=== PATIENT | female | born 1980 | race Hispanic/Latino ===

== ENCOUNTER 2024-11-24 07:12 | Day surgery (SDC) | payer OTHER ==
[2024-11-21 16:12] LABS: Anion Gap 7.6 mEq/L (5.0-15.0); BUN Blood Urea Nitrogen 9.0 mg/dL (7-18); Glucose Level 173.0 mg/dL (74-106)
[2024-11-21 16:16] LABS: Potassium 3.6 mEq/L (3.5-5.1)
[2024-11-24] MEDS ORDERED: MIDAZOLAM HCL 2 MG/2 ML INJ ONE (08:47)
[2024-11-24] MEDS ORDERED: LIDOCAINE 1% MPF 5 ML VIAL ONE (08:47)
[2024-11-24] MEDS: NA CHLORIDE 0.9% 1,000 ML ONE (08:50)
[2024-11-24 13:16] VITALS: BP 103/65; TEMP 97.4; O2SAT 100
== END 2024-11-24 09:57 | disposition home or self-care (01) ==
LOC: OR 07:12
PROVIDERS: ATTEND Surgery
PROC: 0DBP8ZX Excision of Rectum, Via Natural or Artificial Opening Endoscopic, Diagnostic (ICD-10-PCS; principal; 2024-11-24 08:45)
DX: E61.1 Iron deficiency (principal); K64.8 Other hemorrhoids; K57.30 Diverticulosis of large intestine without perforation or abscess without bleeding
CPT/HCPCS: 45380; 93005; 80048; 36415; 88305; J2704; J2003; J2250; J7030